=== PATIENT | female | born 1975 | race Caucasian/White ===

== ENCOUNTER → 2019-11-07 | Outpatient (CLI) | payer OTHER ==
[~2019-11-07] VITALS: Ht 180.3 cm; Wt 104.3 kg
[~2019-11-07] MED LIST: ASA81BEC PO; FLEXERIL PO; METFORMIN HCL500 M3 PO; NAPROSYN500 MG PO; SPIRONOLACTONE25 M1 PO; VOLTAREN GEL 1100 G1 TOP
--- NOTE | ~2019-11-07 | HPC ---
[facility] [place] [address] PAIN MANAGEMENT CONSULTATION Name: RANCHO NGUYEN Room #: REG [facility].#: [id number] Admission: 11/07/19 Attend Phys: Garland Medina DO Discharge: Date of : 75 Report #: [id number] THIS REPORT FOR: cc: PORFIRIO - Lily family physician/PCP PORFIRIO - Lily family physician/PCP Garland Medina DO ~ CC: Dr. Geraldo MONROY physician/PCP Garland Medina DATE OF SERVICE: 11/07/2019 CHIEF COMPLAINT: Low back pain, bilateral buttock and posterolateral thigh pain. HISTORY OF PRESENT ILLNESS: As you know, the patient is a 44-year-old female who has had a longstanding history of low back pain, buttock and posterolateral thigh pain. She has been evaluated by multiple physicians undergoing imaging of the lumbar spine, which showed changes at the L4-L5 level. She has also undergone MRI imaging of the hip, which showed chronic labral tear, but no osteoarthritic changes. She has tried conservative treatment options, which unfortunately did not provide much in the way of improvement in symptoms. Due to the fact that she was not seeing improvement over a period of time, she was subsequently referred to our clinic to discuss interventional treatments to address suspected lumbar radiculopathy. The patient indicates today pain is continuous and periodic with momentary exacerbation of symptoms. She indicates the pain as burning, shooting, intermittently numbness and tingling. Today, the patient is reporting pain score 0/10. Her daily averages anywhere from 5-6/10 depending on activity, 9/10 is the worst pain has been. She indicates that any type of movement of the lower lumbar spine tends to exacerbate symptoms. She has pain in all positions including sitting and lying down, which essentially rules out the hip as the pathology. She does not have any tenderness over the ischial bursa based on her descriptor of pain and locations of symptoms. She has been referred to our service to discuss treatment options for chronic back, buttock, and posterolateral thigh pain. PAST MEDICAL HISTORY: 1. Degenerative joint disease. 2. Mild osteoarthritis. PAST SURGICAL HISTORY: The patient has had a breast lumpectomy 10 years ago and tubal ligation in 2010. SOCIAL HISTORY: The patient denies tobacco, IV or illicit drug use. Admits to [address] [address] PAIN MANAGEMENT CONSULTATION Name: RANCHO NGUYEN Room #: [facility].#: [id number] Admission: 11/07/19 Attend Phys: Garland Medina DO Discharge: Date of : 75 Report #: [id number] 2-3 alcohol beverages per week. She is employed as a nurse. She is working, not receiving workmen's compensation or is trying to obtain disability benefits. She is unaccompanied at today's visit. REVIEW OF SYSTEMS: Positive for weight gain, fever, night sweats, wearing corrective eyewear, hearing loss with tinnitus, earaches with drainage, chest pain, rectal bleeding and painful menses, varicose veins, night sweats, low back pain, bilateral buttock and posterolateral thigh pain. All other review of systems negative per 12-point review of systems, and those listed in history of present illness. Pain impact score 39/70 indicating moderate interference of daily activities secondary to pain. ALLERGIES: No known drug allergies. CURRENT MEDICATIONS: Aspirin 81 mg once a day, cyclobenzaprine 10 mg t.i.d. p.r.n., naproxen 500 mg twice a day. IMAGING: MRI lumbar spine obtained on 09/17/2019 shows L4-L5 with new disk herniation causing no significant central canal neural foraminal stenosis. There are noted changes at the C3-C4 level with mild levoscoliotic curvature associated with degenerative disk changes resulting in no significant central canal and no lateral stenosis. the remaining level shows some arthritic changes typical for the patient's age and body habitus. MRI of the left hip obtained on 02/28/2018 shows chronic tear of the anterior superior labrum and changes within the uterus. PHYSICAL EXAMINATION: VITAL SIGNS: Blood pressure 108/56, pulse 89, respiratory rate 16 and unlabored. The patient is 98% on room air. Height 5 feet 11 inches tall, weight 230 pounds and BMI calculated at 32.1. GENERAL: Well-developed, well-nourished, well-hydrated 44-year-old female appearing stated age. She is placing current pain score 0/10 at present, but up to 5-6/10 with activity. HEENT: Normocephalic, atraumatic. Pupils equal, round, reactive to light. Extraocular muscles are intact. Sclerae nonicteric without injection. NEUROLOGIC: Cranial nerves 2-12 grossly intact. Speech is fluent. LUNGS: Clear, no wheeze, rhonchi or rales. CARDIOVASCULAR: Regular. No appreciable gallop, no rub. ABDOMEN: Soft, nontender, obese. Normoactive bowel sounds. EXTREMITIES: Show no clubbing, no cyanosis, and no edema. MUSCULOSKELETAL: Lower extremity strength appears symmetrical 5/5. There does not appear to be any giveaway strength with hip flexion or knee extension bilaterally. Seated straight leg raising negative. Supine straight leg raising [facility] [address] [place] [address] PAIN MANAGEMENT CONSULTATION Name: RANCHO NGUYEN Room #: REG [facility]#: [id number] Admission: 11/07/19 Attend Phys: Garland Medina DO Discharge: Date of : 75 Report #: [id number] is equivocal. Lumbar provocation testing is met with increase in axial back pain, no radiation of symptoms. Ankle clonus negative. Babinski is negative. Muscle bulk and tone equal and symmetrical in comparing left lower extremity to right. ASSESSMENT: 1. Symptomatic lumbar radiculopathy. 2. Mild spinal stenosis of lumbar spine. 3. Displacement of lumbar intervertebral disk with radiculopathy. 4. Lumbosacral spondylosis with radiculopathy. 5. Facet arthropathy of the lumbar spine. 6. Lumbar degeneration. 7. Chronic intractable pain. PLAN: 1. Based on today's physical exam and history the patient has provided, the description the patient uses in regards to pain as well as location of symptoms being bilateral in nature. It appears the patient is suffering from lumbar radicular symptoms. The fact that she has waxing and waning features and pain when seated and lying down. This rules out the potential of the hip being the source of the patient's symptoms. She has a negative testing for ischial bursitis, which was suggested in the paperwork that was not present on exam today. SI joints do have some palpatory tenderness, but they do not appear to be dysfunctional. Given the findings on the physical examination, we recommend that the patient to address her lumbar radicular symptoms in the following fashion. We discussed physical therapy, stretching exercises, core strengthening and a concerted effort at weight loss. We discussed medication management utilizing neuropathic pain medication such as nortriptyline, amitriptyline, Cymbalta, Lyrica or gabapentin, which can be initiated by the PCP. We discussed lumbar epidural injection for which the patient was referred to our clinic. We also discussed surgical options, though. at this point, the patient is not a surgical candidate as the findings are not conclusive. After reviewing the risks and benefits of all proposed treatment options, the patient chose to move forward with a lumbar epidural injection. 2. The patient was advised that due to third libertarian payer restrictions, authorization would have to be obtained before the patient could undergo a lumbar epidural injection. Authorization could take anywhere from 4-7 working days. We will begin this process immediately and contact the patient once that has been completed. 3. No medication changes made at today's visit. The patient will continue current medical therapy as previously prescribed. 4. We will see the patient back in followup visit once we have achieved authorization to undergo lumbar epidural injection under fluoroscopic guidance. 5. We wish to thank Dr. Chow for the opportunity [place] [address] PAIN MANAGEMENT CONSULTATION Name: RANCHO NGUYEN Room #: [facility]#: [id number] Admission: 11/07/19 Attend Phys: Garland Medina DO Discharge: Date of : 75 Report #: [id number] consultation. We will keep you apprised of response to treatment as we address lumbar radicular symptoms. Again, we wish to thank you for the opportunity to see the patient in consultation. ADDENDUM: We were able to obtain authorization for the patient to undergo the epidural injection. We had received some information that indicated the patient did not require authorization after all. We then subsequently consented the patient to undergo a lumbar epidural injection. She was advised risks and benefits of this procedure. These risks include but are not necessarily limited to bleeding, bruising, infection, worsening pain, no relief of pain, also risk of temporary or permanent muscle weakness, temporary or permanent nerve damage, possible paralysis and . The patient states understood and wished to proceed. DESCRIPTION OF PROCEDURE: L5-S1 interlaminar epidural steroid injection under fluoroscopic guidance. After obtaining written consent, the patient was taken back to fluoroscopy suite, placed in prone position with pillow under abdomen to decrease lumbar lordosis. Skin overlying lumbosacral area was then prepped and draped in aseptic fashion. The L5-S1 vertebral interspace was identified by AP fluoroscopy. Skin and subcutaneous tissue overlying target site of injection were anesthetized with 3 mL of 1% lidocaine. A 20-gauge 3-1/2 inch Tuohy needle was advanced under fluoroscopic guidance towards the epidural space using a midline approach. Epidural space was identified using loss of resistance to air technique. After negative aspiration for heme or cerebrospinal fluid, 1 mL of Omnipaque was injected. Lumbar epidurogram was confirmed using both AP and lateral fluoroscopy. After negative aspiration for heme or cerebrospinal fluid, 5 mL of a solution containing 2 mL 40 mg per mL, 80 mg total triamcinolone along with 3 mL of lidocaine 1% injected slowly. Needle was retracted mcc, flushed with 1 mL of 1% lidocaine and then removed. Sterile bandage was placed over injection site. No new motor deficits present in lower extremity following procedure. The patient tolerated the procedure well, carefully escorted to recovery room in stable condition. No apparent complications. After meeting our discharge criteria, the patient was discharged home. By: [id number] Garland Medina, DO /nt
[2019-11-07 13:25] VITALS: BP 108/56
--- NOTE | 2019-11-07 13:48 | NUR ---
Pain Clinic Assessment: 1. History of Osteoarthritis: Not Applicable History of Rheumatoid Arthritis: Not Applicable 2. Height: 5 ft. 11 in. 180.3 cm. Weight: 230.0 lb. oz. 104.328 kg. Patient's BMI: 32.1 3. Vital Signs: BP: 108/56 Pulse: 89 Resp: 16 Temp: 02 Sat: 98 ECG Mon: 4. Pain Intensity: 5-6 AVG 0 NOW 5. Fall Risk: Dizziness: N Needs help standing or walking: N Fallen in the last 3 months: N Fall risk comments: 6. Patient on Blood Thinner: None 7. History of Hypertension: N 8. Opioid Therapy greater than 6 weeks: N Opiate Contract Signed: 9. Risk Assessment Tool Provided: 10. Functional Assessment Tool: low risk 0-3 11. Recreational Drug Use: Never Drug Type: Tobacco Use: Former Smoker Tobacco Type: Cigarettes Amount or Packs/day: /8 How Many Years: 8 Alcohol Use: Yes Frequency: Special Occasions Quant: 2-3
== END | disposition home or self-care (01) ==
LOC: PAIN 06:51
DX: M51.16 Intervertebral disc disorders with radiculopathy, lumbar region (principal); M47.27 Other spondylosis with radiculopathy, lumbosacral region; M48.061 Spinal stenosis, lumbar region without neurogenic claudication; M47.26 Other spondylosis with radiculopathy, lumbar region; G89.29 Other chronic pain; M19.90 Unspecified osteoarthritis, unspecified site; F41.9 Anxiety disorder, unspecified; Z98.890 Other specified postprocedural states; Z98.51 Tubal ligation status; Z79.899 Other long term (current) drug therapy

== ENCOUNTER → 2021-02-04 | Outpatient (CLI) | payer BC ==
[~2021-02-04] VITALS: Ht 180.3 cm; Wt 108.1 kg
[2021-02-04 12:51] VITALS: BP 125/78
--- NOTE | 2021-02-04 13:19 | NUR ---
Pain Clinic Assessment: 1. History of Osteoarthritis: Not Applicable History of Rheumatoid Arthritis: Not Applicable 2. Height: 5 ft. 11 in. 180.3 cm. Weight: 238.4 lb. oz. 108.138 kg. Patient's BMI: 33.3 3. Vital Signs: BP: 125/78 Pulse: 74 Resp: 16 Temp: 02 Sat: 100 ECG Mon: 4. Pain Intensity: 7-8 W/ACTIVITY 5. Fall Risk: Dizziness: N Needs help standing or walking: N Fallen in the last 3 months: N Fall risk comments: 6. Patient on Blood Thinner: None 7. History of Hypertension: N 8. Opioid Therapy greater than 6 weeks: N Opiate Contract Signed: 9. Risk Assessment Tool Provided: 10. Functional Assessment Tool: low risk 0-3 11. Recreational Drug Use: Never Drug Type: Tobacco Use: Former Smoker Tobacco Type: Amount or Packs/day: How Many Years: Alcohol Use: Yes Frequency: Quant:
--- NOTE | 2021-02-11 09:33 | HPC ---
[address] [address] PAIN MANAGEMENT CONSULTATION Name: RANCHO NGUYEN Room #: REG [facility].#: [id number] Admission: 02/04/21 Attend Phys: Garland Medina DO Discharge: Date of : 75 Report #: [id number] THIS REPORT FOR: cc: Hermilo Glasgow MD, Neal A. MD Johnson, James E. DO ~ DOC #: [id number] cc: MD Garland Peter DO DATE OF SERVICE: 02/04/2021 REFERRING PHYSICIAN: Hermilo Glasgow MD CHIEF COMPLAINT: Low back pain, left lower extremity pain with paresthesias. HISTORY OF PRESENT ILLNESS: As you know, the patient is a very pleasant 45-year-old female who was referred to our service for chronic low back pain, left lower extremity pain with paresthesias. She underwent a lumbar epidural injection under fluoroscopic guidance at our visit of 11/07/2019 with excellent benefit in overall pain. In fact, the patient reported 90% improvement in overall pain lasting until just recently where she had a slow and progressive return of symptoms. She returns today in followup visit to begin the authorization process to undergo next in the series of lumbar epidural injections. The patient denies any specific injury or trauma that may have led to symptom development. She is very pleased with response to the initial injection, returning today to begin the authorization process to undergo the next in the series in hopes of continued analgesic benefit. ALLERGIES: No known drug allergies. CURRENT MEDICATIONS: Naproxen 500 mg b.i.d., aspirin 81 mg a day, cyclobenzaprine 10 mg t.i.d. p.r.n. SOCIAL HISTORY: The patient denies tobacco, alcohol or IV or illicit drug use. She is unaccompanied at today's visit. IMAGING STUDIES: No new imaging available. PHYSICAL EXAMINATION: VITAL SIGNS: Blood pressure 125/78, pulse 74, respiratory rate 16 and unlabored. The patient 100% on room air. Height 5 feet 11 inches tall, weight 238.4 pounds, BMI calculated 33.3. GENERAL: Well-developed, well-nourished, well-hydrated exogenously obese 45-year-old female appearing stated age, pain is rated today around 7-8/10 with activity. HEENT: Normocephalic and atraumatic. Pupils are equal, round and responsive to [facility] [address] [place] [address] PAIN MANAGEMENT CONSULTATION Name: RANCHO NGUYEN [id number] Admission: 02/04/21 Attend Phys: Garland Medina DO Discharge: Date of : 75 Report #: [id number] light. Extraocular muscles are intact. Speech fluent. The patient is wearing a mask in compliance with COVID-19 regulations. EXTREMITIES: Show no clubbing, no cyanosis, no appreciable edema. MUSCULOSKELETAL: Lower extremity strength equal and symmetrical 5/5. Muscle bulk and tone equal and symmetrical comparing left lower extremity to right. Seated straight leg raising negative. Supine straight leg raising mildly positive. Fabere's test is negative. Modified Gaenslen's positive for axial low back pain. Ankle clonus negative. Babinski is negative. Lumbar provocation testing is met with slight increase in axial pain. ASSESSMENT: 1. Symptomatic lumbar radiculopathy. 2. Lumbosacral spondylosis with radiculopathy. 3. Chronic intractable pain. PLAN: 1. The patient returns today in followup visit indicating a 90% improvement in overall pain with the epidural injection provided in 10/2019. She has been doing very well from a standpoint of pain control until just recently where she had a slow and progressive return of symptoms. She returns today to begin the process of beginning authorizations to undergo next in the series of epidural injections. I did advise the patient that authorization could take anywhere from 4-7 working days, will begin that process immediately. Once this has been completed, we will have the patient return to undergo the second in the series of epidural injections. We are pleased to see the patient has done well with the initial injection hopeful that the second injection will also provide similar long-term analgesic benefit. 2. No medication changes made at today's visit. The patient will continue current medical therapy as prior prescribed. 3. We plan to see the patient back in followup visit once we have achieved authorization for the patient to undergo the next in the series of lumbar epidural injections. Garland Medina DO JEJ/ALL <ELECTRONICALLY SIGNED> By: Garland Medina DO 02/11/21 [id number] Garland Medina DO /nt
== END ==
LOC: PAIN 08:19
PROVIDERS: ATTEND Anesthesiology Pain Medicine
DX: M47.26 Other spondylosis with radiculopathy, lumbar region (principal); G89.4 Chronic pain syndrome; Z79.891 Long term (current) use of opiate analgesic; Z79.899 Other long term (current) drug therapy